=== PATIENT | male | born 1940 | race Caucasian/White ===

== ENCOUNTER → 2018-06-27 | Outpatient (CLI) | payer MEDICARE, OTHER ==
--- NOTE | 2018-06-29 13:16 | REP ---
PET/CT: History: Solitary pulmonary nodule. Comparisons: Report of [facility] CT study of the chest from June 14, 2018 describes a 2.2 x 1.1 x 0.8 cm right lower lobe opacity. Report was delayed pending retrieval of the comparison CT images. TECHNIQUE: 1 hour 10 minutes following the intravenous injection of a 9.8 mCi dose of F-18 FDG, three-dimensional PET scintigraphy is acquired from the skull base to the proximal thighs. Triplanar noncontrast CT scanning is acquired through the same anatomic range for attenuation correction, and image registration with scan parameters optimized to minimize radiation exposure to the patient. PET scintigraphy and CT datasets were fused and displayed on a workstation with multiplanar and projection display capability. PET/CT Findings: There is no abnormal hypermetabolic uptake within the thorax. No abnormal uptake is seen in the right lower lobe. No abnormal uptake is seen at the pleural based opacity in the right lower lobe posterolaterally. No abnormal hilar or mediastinal FDG accumulation is seen. In the head and neck soft tissues, there is some asymmetric increased uptake in the right tonsillar soft tissues adjacent to a fairly large tonsillar crypt calcification. This may be inflammation. Maximum standard uptake value is 8.9, however, and clinical correlation is recommended as this is fairly high. Uptake in the left tonsillar soft tissues of 5.5. Head and neck soft tissues are otherwise unremarkable. In the abdomen and pelvis, normal hepatic, splenic, gastrointestinal, and genitourinary FDG accumulation is seen. No abnormal abdominal or pelvic hypermetabolic uptake is seen. There is left colonic diverticulosis. Impression: No abnormal hypermetabolic uptake is seen in the chest. There is a focus of asymmetric right tonsillar soft tissue hypermetabolic uptake of uncertain significance. Clinical correlation is recommended. Otherwise negative PET scintigraphy. Electronically Signed by Brendon Villanueva MD 06/29/2018 04:55 P
== END ==
LOC: M PLARAD 13:55
PROVIDERS: ATTEND Internal Medicine Pulmonary Disease
DX: R91.1 Solitary pulmonary nodule (principal)
CPT/HCPCS: 78815; A9552

== ENCOUNTER → 2020-07-26 | Outpatient (REF) | LOC: M LAB LCGH 08:22 | PROVIDERS: ATTEND Nurse Practitioner Family | DX: Z00.00 Encounter for general adult medical examination without abnormal findings (principal) ==

== ENCOUNTER → 2020-07-27 | Outpatient (REF) | LOC: M LAB LCGH 14:26 | PROVIDERS: ATTEND Internal Medicine | DX: Z00.00 Encounter for general adult medical examination without abnormal findings (principal) ==